=== PATIENT | male | born 1960 | race American Indian/Alaskan Native ===

== ENCOUNTER 2018-04-20 19:48 | Emergency (ER) | payer MEDICAID ==
[2018-04-20 19:56] VITALS: TEMP 97.6
[2018-04-20] MEDS ORDERED: Sodium Chloride 0.9% 1,000 ML IV STA ×2 (20:07→20:44)
[2018-04-20 20:23] LABS: BASO % 0.4 % (0.0-2.0); EOS # 0.1 K/uL (0.0-0.7); EOS % 2.5 % (0.0-4.0); LYMPH # 1.3 K/uL (1.0-4.3); LYMPH % 23.7 % (20.0-40.0); MEAN CELL VOLUME 90.2 fl (80.0-94.0); MEAN CORPUSCULAR HEMOGLOBIN 30.9 pg (27.0-31.0); MEAN CORPUSCULAR HGB CONC 34.3 g/dL (33.0-37.0); MEAN PLATELET VOLUME 8.2 fl (7.2-11.7); MONO # 0.6 K/uL (0.0-0.8); MONO % 11.1 % (0.0-10.0); NEUT # 3.6 K/uL (1.8-7.0); NEUT % 62.3 % (50.0-75.0); NRBC % 0.1 % (0.0-0.0); RBC 4.54 Mil/uL (4.40-5.90); RED CELL DISTRIBUTION WIDTH 13.6 % (11.5-14.5); WHITE BLOOD COUNT 5.7 K/uL (4.8-10.8)
--- NOTE | 2018-04-20 20:23 | ED PDOC ---
HPI: Psych/Substance Abuse Time Seen by Provider: 04/20/18 19:56 Chief Complaint (Nursing): Alcohol Ingestion Chief Complaint (Provider): Alcohol and possible drug intoxication ED Caveat: Intoxicated History Per: EMS Onset/Duration Of Symptoms: Hrs Current Symptoms Are (Timing): Still Present Additional Complaint(s): Candelario Mcfadden is a 57 year old male, who was brought by EMS for supposed intoxication of alcohol and possible drugs. Patient can't provide any further history due to clinical condition. Past Medical History Reviewed: Historical Data, Nursing Documentation, Vital Signs Vital Signs: Last Vital Signs Temp 97.6 F 04/20/18 19:53 Pulse 67 04/20/18 19:53 Resp 16 04/20/18 19:53 BP 65/41 L 04/20/18 19:53 Pulse Ox 92 L 04/20/18 19:53 - Family History Family History: States: Unknown Family Hx - Home Medications Home Medications: Ambulatory Orders Medication Instructions Recorded Acetaminophen 650 mg PO Q4H PRN #50 tablet 07/16/16 Naproxen [Naprosyn] 500 mg PO BID PRN #20 tablet 07/16/16 - Allergies Allergies/Adverse Reactions: Allergies Allergy/AdvReac Type Severity Reaction Status Date / Time No Known Allergies Allergy Verified 03/28/18 21:01 Review of Systems Review Of Systems: ROS cannot be obtained secondary to pt's inabilty to answer questions. Physical Exam - Reviewed Nursing Documentation Reviewed: Yes Vital Signs Reviewed: Yes - Physical Exam Appears: Negative for: Well (appears somnolent and has vomit around the mouth. No visible signs of trauma) Head Exam: Positive for: ATRAUMATIC, NORMAL INSPECTION, NORMOCEPHALIC Skin: Positive for: Normal Color, Warm, Dry Eye Exam: Positive for: Normal appearance, EOMI, PERRL Cardiovascular/Chest: Positive for: Regular Rate, Rhythm. Negative for: Murmur Respiratory: Positive for: Normal Breath Sounds. Negative for: Respiratory Distress Extremity: Positive for: Normal ROM (upper and lower extremities). Negative for : Deformity, Swelling Neurologic/Psych: Positive for: Alert (Opens eyes to verbal commands). Negative for: Motor/Sensory Deficits (able to move all extremities) - Laboratory Results Result Diagrams: 04/20/18 20:15 04/20/18 20:15 - ECG O2 Sat by Pulse Oximetry: 92 (RA) Medical Decision Making Medical Decision Making: Time: 19:56 A/P: 57 y/o male brought for alcohol and possible drug intoxication. Patient initially hypotensive and improving spontaneously. Patient has no physical signs of trauma however unclear if pt. hit his head. Will get head CT, labs, give IV fluids and monitor patient until sober Plan: --Head w/o contrast [CT] --Acetaminophen --Alcohol serum --CMP --Drug screen, urine --Lact acid, Plasma --Salicylate --CBC w/ differential --Chest portable [RAD] --Sodium Chloride 1,000 ml IV 1,000 mls/hr --Zofran Inj 4 mg IVP 430AM Patient now awake, alert, negative workup. Patient tolerating PO, feeling well. Advised against excessive alcohol consumption. ----- Scribe Attestation: Documented by Manolo Qureshi, acting as a scribe for Aron Peña MD. Provider Scribe Attestation: All medical record entries made by the Scribe were at my direction and personally dictated by me. I have reviewed the chart and agree that the record accurately reflects my personal performance of the history, physical exam, medical decision making, and the department course for this patient. I have also personally directed, reviewed, and agree with the discharge instructions and disposition. Disposition - Clinical Impression Clinical Impression: Alcohol abuse - Patient ED Disposition Is Patient to be Admitted: No - Disposition Referrals: Alcoholics Anonymous [Outside] Disposition: Routine/Home Disposition Time: 04:41 Condition: IMPROVED Instructions: Alcohol Abuse and Alcoholism (DC) Forms: [employer] (Burmese)
[2018-04-20 20:33] LABS: ACETAMINOPHEN < 10.0 ug/ml (10.0-30.0); SALICYLATE < 1.0 mg/dl
[2018-04-20 20:35] LABS: ALB/GLOB RATIO 1.4 (1.0-2.1); ALBUMIN 4.1 g/dL (3.5-5.0); CALCIUM 9.2 mg/dL (8.4-10.2)
[2018-04-20] MEDS ORDERED: Naloxone 0.4 mg/ml Inj (Adult) IVP STA (20:45)
[2018-04-20 23:50] VITALS: RESP 18
[2018-04-21 04:47] VITALS: BP 146/75; PULSE 48; O2SAT 98
--- NOTE | 2018-04-21 08:45 | RAD ---
Date of service: 04/20/2018 HISTORY: ETOH abuse, hypoxic COMPARISON: 07/16/2016. FINDINGS: LUNGS: The lungs are well inflated. There is airspace disease in the right lung base. The left lung is clear. PLEURA: No significant pleural effusion identified, no pneumothorax apparent. CARDIOVASCULAR: Normal. OSSEOUS STRUCTURES: No significant abnormalities. VISUALIZED UPPER ABDOMEN: Normal. OTHER FINDINGS: None. IMPRESSION: Airspace disease in the right lung base may represent subsegmental atelectasis however superimposed pneumonia cannot be excluded. Follow-up to resolution is advised.
--- NOTE | 2018-04-21 09:51 | CT ---
Date of service: 04/20/2018 PROCEDURE: CT HEAD WITHOUT CONTRAST. HISTORY: drug/alcohol use, altered COMPARISON: 03/19/2018. TECHNIQUE: Axial computed tomography images were obtained through the head/brain without intravenous contrast. Radiation dose: Total exam DLP = 799.31 mGy-cm. This CT exam was performed using one or more of the following dose reduction techniques: Automated exposure control, adjustment of the mA and/or kV according to patient size, and/or use of iterative reconstruction technique. FINDINGS: HEMORRHAGE: No intracranial hemorrhage. BRAIN: Benavidez-white matter differentiation is preserved. There is no mass, mass effect or abnormal extra-axial fluid collection. There is no territorial infarction. VENTRICLES: The ventricles are normal in size, shape and configuration. CALVARIUM: There is no calvarial fracture or extracranial soft tissue swelling. PARANASAL SINUSES: Patchy chronic ethmoid sinusitis. The remaining included paranasal sinuses are predominantly clear. MASTOID AIR CELLS: Predominantly clear. OTHER FINDINGS: None. IMPRESSION: No acute intracranial abnormality. Chronic ethmoid sinusitis. A preliminary report was provided by [facility] services.
== END 2018-04-21 05:11 | disposition home or self-care (01) ==
LOC: H.ER 19:48
DX: F10.10 Alcohol abuse, uncomplicated (principal); R11.10 Vomiting, unspecified; I95.9 Hypotension, unspecified; J32.2 Chronic ethmoidal sinusitis
CPT/HCPCS: 70450; 71045; 80053; 80320; 80329; 82948; 83605; 85025; 96361; 96374; 99285; J2405; J7030